=== PATIENT | male | born 1940 | race Caucasian/White ===

== ENCOUNTER 2017-04-05 18:18 | Inpatient (IN) | payer MEDICARE, BC ==
[~2017-04-05] VITALS: Ht 167.6 cm; Wt 70.0 kg
[2017-04-05 19:04] VITALS: BP 134/85; PULSE 98; TEMP 98.6
[2017-04-05] MEDS ORDERED: ZOLOFT 100MG100 MG PO (21:40)
[2017-04-05] MEDS ORDERED: ASPIRIN 81M81 MG/TA2 PO (21:41)
[2017-04-05] MEDS ORDERED: ARICEPT10 MG PO (21:41)
[2017-04-05] MEDS ORDERED: ZOCOR5 MG PO (21:41)
[2017-04-05] MEDS ORDERED: VITAMIN D31000 I1 PO (21:42)
[2017-04-05] MEDS ORDERED: PEPCID 20MG TAB20 MG PO (21:42)
[2017-04-05] MEDS ORDERED: B COMPLEX & B121 TAB (21:43)
[2017-04-05 23:33] VITALS: BP 133/80; PULSE 60; TEMP 98.5
[2017-04-06] VITALS (11 sets, daily range): BP systolic 108–143; BP diastolic 63–86; PULSE 50–62; TEMP 97.6–98.5
[2017-04-06 07:54] LABS: BASO % 0.3 % (0.0-2.0); EOS # 0.1 (0.0-0.7); EOS % 2.2 % (0-4.0); GRAN % 55.3 % (42.2-75.2); HEMATOCRIT 38.2 % (42.0-52.0); HEMOGLOBIN 13.2 g/dl (13.5-18.0); LYMPH % 28.4 % (20.0-51.0); MEAN CELL VOLUME 95 fl (80.0-100.0); MEAN CORPUSCULAR HEMOGLOBIN 33 pg (27.0-31.0); MEAN CORPUSCULAR HGB CONC 35 g/dl (33.0-37.0); MEAN PLATELET VOLUME 10.3 fl (7.4-10.4); MONO # 0.5 (0.1-0.6); MONO % 13.5 % (1.7-9.3); PLATELET COUNT 160 K/mm3 (130-400); RED BLOOD COUNT 4.01 M/mm3 (4.20-5.60); REDCELL DISTRIBUTION WIDTH-CV 11.9 % (11.5-14.5)
[2017-04-06 08:11] LABS: CREATININE, serum 0.71 mg/dL (0.66-1.25); PHOSPHOROUS 3.4 mg/dL (2.5-4.5); POTASSIUM 3.4 mmol/L (3.4-5.0)
[2017-04-06 18:40] LABS: PH 5 (5-8); SQUAMOUS EPITHELIAL None Seen /hpf; URINE APPEARANCE Clear; URINE BACTERIA None Seen /hpf; URINE BILIRUBIN Negative (NEGATIVE); URINE BLOOD 2+ (NEGATIVE); URINE COLOR Yellow; URINE GLUCOSE 1+ (NEGATIVE); URINE KETONE Trace (NEGATIVE); URINE LEUKOCYTE ESTERASE Negative (NEGATIVE); URINE NITRATE Negative (NEGATIVE); URINE PROTEIN(semi-quant) Negative (NEGATIVE); URINE UROBILINOGEN Negative (NEGATIVE)
[2017-04-06 18:43] LABS: COLLECTION METHOD CLEAN CATCH
[2017-04-07 00:59] VITALS: BP 107/69; PULSE 51; TEMP 97.6
[2017-04-07 03:48] VITALS: BP 123/88; PULSE 66; TEMP 98.5
[2017-04-07 07:23] VITALS: BP 129/71; PULSE 61; TEMP 98.3
[2017-04-07 12:17] VITALS: BP 142/84; PULSE 54; TEMP 98.1
== END 2017-04-07 15:25 | disposition home or self-care (01) | DRG 389 ==
LOC: MEDICAL 18:18
PROVIDERS: Surgery
PROC: 0D7N8ZZ Dilation of Sigmoid Colon, Via Natural or Artificial Opening Endoscopic (ICD-10-PCS; principal; 2017-04-06 07:30)
DX: K56.2 Volvulus (principal); E87.1 Hypo-osmolality and hyponatremia; G30.9 Alzheimer's disease, unspecified; F02.80 Dementia in other diseases classified elsewhere, unspecified severity, without behavioral disturbance, psychotic disturbance, mood disturbance, and anxiety
CPT/HCPCS: OP; J2704; J3010; J7030

== ENCOUNTER → 2017-04-05 | Outpatient (CLI) | payer MEDICARE, BC ==
[~2017-04-05] MED LIST: ARICEPT10 MG PO; ASPIRIN 81M81 MG/TA2 PO; B COMPLEX & B121 TAB; PEPCID 20MG TAB20 MG PO; VITAMIN D31000 I1 PO; ZOCOR5 MG PO; ZOLOFT 100MG100 MG PO
[2017-04-05 16:54] LABS: HEMATOCRIT 42.4 % (42.0-52.0); HEMOGLOBIN 14.4 g/dl (13.5-18.0); MEAN CELL VOLUME 96 fl (80.0-100.0); MEAN CORPUSCULAR HEMOGLOBIN 32 pg (27.0-31.0); MEAN CORPUSCULAR HGB CONC 34 g/dl (33.0-37.0); MEAN PLATELET VOLUME 9.5 fl (7.4-10.4); PLATELET COUNT 171 K/mm3 (130-400); RED BLOOD COUNT 4.44 M/mm3 (4.20-5.60)
[2017-04-05 17:07] LABS: ALBUMIN 3.9 gm/dL (3.5-5.0); BILIRUBIN,TOTAL 0.9 mg/dL (0.0-1.0); CALCIUM 8.4 mg/dL (8.4-10.2); CREATININE, serum 0.8 mg/dL (0.66-1.25); POTASSIUM 3.8 mmol/L (3.4-5.0); TOTAL PROTEIN 6.4 gm/dL (6.4-8.2)
== END ==
LOC: COL.RAD 15:49
PROVIDERS: Family Medicine
DX: K56.600 Partial intestinal obstruction, unspecified as to cause (principal); M51.36 Other intervertebral disc degeneration, lumbar region; M46.96 Unspecified inflammatory spondylopathy, lumbar region; M41.86 Other forms of scoliosis, lumbar region; N40.0 Benign prostatic hyperplasia without lower urinary tract symptoms; Z98.0 Intestinal bypass and anastomosis status
CPT/HCPCS: Q9967

== ENCOUNTER 2017-04-11 13:12 | Inpatient (IN) | payer MEDICARE, BC ==
[~2017-04-11] VITALS: Ht 167.6 cm; Wt 70.2 kg
[~2017-04-11 13:12] MED LIST changes: -B COMPLEX & B121 TAB; +B-121000 MCG SL; -PEPCID 20MG TAB20 MG PO; +PEPCID AC 10MG10 MG PO; +ZOCOR 40MG40 MG PO; -ZOCOR5 MG PO
[2017-04-21] VITALS (11 sets, daily range): BP systolic 83–143; BP diastolic 52–87; PULSE 65–95; TEMP 97.3–98
[2017-04-21 10:46] LABS: BASO % 0.9 % (0.0-2.0); EOS # 0.1 (0.0-0.7); EOS % 1.6 % (0-4.0); GRAN # 2.5 (1.4-6.5); GRAN % 55.9 % (42.2-75.2); HEMATOCRIT 42.8 % (42.0-52.0); HEMOGLOBIN 14.7 g/dl (13.5-18.0); LYMPH # 1.4 (1.2-3.4); MEAN CELL VOLUME 96 fl (80.0-100.0); MEAN CORPUSCULAR HEMOGLOBIN 33 pg (27.0-31.0); MEAN CORPUSCULAR HGB CONC 34 g/dl (33.0-37.0); MEAN PLATELET VOLUME 9.5 fl (7.4-10.4); MONO # 0.5 (0.1-0.6); MONO % 10.6 % (1.7-9.3); PLATELET COUNT 199 K/mm3 (130-400); RED BLOOD COUNT 4.48 M/mm3 (4.20-5.60); REDCELL DISTRIBUTION WIDTH-CV 12.1 % (11.5-14.5)
[2017-04-21 10:57] LABS: CALCIUM 8.7 mg/dL (8.4-10.2); CREATININE, serum 0.76 mg/dL (0.66-1.25); POTASSIUM 3.9 mmol/L (3.4-5.0)
[2017-04-22] VITALS (9 sets, daily range): BP systolic 71–105; BP diastolic 40–62; PULSE 63–93; TEMP 97.5–98.2
[2017-04-22 05:29] LABS: CALCIUM 7.8 mg/dL (8.4-10.2); CREATININE, serum 1.14 mg/dL (0.66-1.25); HEMATOCRIT 31.1 % (42.0-52.0); HEMOGLOBIN 10.5 g/dl (13.5-18.0); POTASSIUM 4.4 mmol/L (3.4-5.0)
[2017-04-22 12:38] LABS: HEMATOCRIT 29.1 % (42.0-52.0); HEMOGLOBIN 9.7 g/dl (13.5-18.0)
[2017-04-23 04:42] VITALS: BP 128/75; PULSE 80; TEMP 98.2
[2017-04-23 07:08] LABS: HEMATOCRIT 23.2 % (42.0-52.0)
[2017-04-23 07:13] LABS: CALCIUM 7.6 mg/dL (8.4-10.2); CREATININE, serum 0.74 mg/dL (0.66-1.25); POTASSIUM 3.9 mmol/L (3.4-5.0)
[2017-04-23 09:01] VITALS: BP 110/68; PULSE 84; TEMP 97.6
[2017-04-23 14:46] VITALS: BP 118/83; PULSE 88; TEMP 98.2
[2017-04-23 16:36] LABS: HEMATOCRIT 27.4 % (42.0-52.0); HEMOGLOBIN 9.3 g/dl (13.5-18.0)
[2017-04-23 17:17] VITALS: BP 114/78; PULSE 101; TEMP 98.9
[2017-04-23 20:00] VITALS: BP 116/72; PULSE 98; TEMP 98
[2017-04-24 04:10] VITALS: BP 108/62; PULSE 92; TEMP 98.6
[2017-04-24 07:09] LABS: HEMATOCRIT 27.8 % (42.0-52.0); HEMOGLOBIN 9.6 g/dl (13.5-18.0)
[2017-04-24 09:46] VITALS: BP 124/71; PULSE 93; TEMP 99.1
[2017-04-24 13:26] VITALS: BP 110/74; PULSE 78; TEMP 97.9
[2017-04-24 17:59] VITALS: BP 122/66; PULSE 89; TEMP 99.2
[2017-04-24 22:29] VITALS: BP 117/73; PULSE 79; TEMP 98.1
[2017-04-25 01:50] VITALS: BP 141/68; PULSE 77; TEMP 98.1
[2017-04-25 05:51] VITALS: BP 122/76; PULSE 72; TEMP 98.1
[2017-04-25 06:18] LABS: HEMATOCRIT 24.2 % (42.0-52.0); HEMOGLOBIN 8.2 g/dl (13.5-18.0)
[2017-04-25 06:30] LABS: CALCIUM 7.5 mg/dL (8.4-10.2); CREATININE, serum 0.76 mg/dL (0.66-1.25); MAGNESIUM 1.9 mg/dL (1.6-2.3); PHOSPHOROUS 3.3 mg/dL (2.5-4.5); POTASSIUM 3.5 mmol/L (3.4-5.0)
[2017-04-25 09:39] VITALS: BP 123/79; PULSE 75; TEMP 97.4
[2017-04-25 13:24] VITALS: BP 103/66; PULSE 82; TEMP 98
[2017-04-25 17:17] VITALS: BP 113/78; PULSE 68; TEMP 97.8
[2017-04-25 21:20] VITALS: BP 117/68; PULSE 76; TEMP 98.1
[2017-04-26 01:30] VITALS: BP 125/77; PULSE 83; TEMP 98.5
[2017-04-26 05:33] VITALS: BP 129/77; PULSE 87; TEMP 98.4
[2017-04-26 09:36] VITALS: BP 120/78; PULSE 79; TEMP 98.3
== END 2017-04-26 13:20 | disposition home or self-care (01) | DRG 330 ==
LOC: SURG 04-21 09:32 → INPTSU 04-21 09:32 → SURG 04-21 11:30
PROVIDERS: Surgery
PROC: 0DBL4ZZ Excision of Transverse Colon, Percutaneous Endoscopic Approach (ICD-10-PCS; 2017-04-21)
PROC: 8E0W3CZ Robotic Assisted Procedure of Trunk Region, Percutaneous Approach (ICD-10-PCS; 2017-04-21)
PROC: 0DBM4ZZ Excision of Descending Colon, Percutaneous Endoscopic Approach (ICD-10-PCS; principal; 2017-04-21 11:30)
DX: K56.2 Volvulus (principal); D62 Acute posthemorrhagic anemia; K91.840 Postprocedural hemorrhage of a digestive system organ or structure following a digestive system procedure; K56.7 Ileus, unspecified; Z85.038 Personal history of other malignant neoplasm of large intestine; G30.9 Alzheimer's disease, unspecified; F02.80 Dementia in other diseases classified elsewhere, unspecified severity, without behavioral disturbance, psychotic disturbance, mood disturbance, and anxiety
CPT/HCPCS: A4314; J1100; J1650; J1885; J2270; J2405; J2704; J2710; J2765; J3010; J7120

== ENCOUNTER 2017-05-16 09:38 | Observation (INO) | payer MEDICARE, BC ==
[~2017-05-16] VITALS: Ht 167.6 cm; Wt 63.6 kg
[2017-05-16 10:49] LABS: BASO % 0.3 % (0.0-2.0); EOS % 0.7 % (0-4.0); GRAN # 4.7 (1.4-6.5); GRAN % 77.1 % (42.2-75.2); HEMATOCRIT 38.3 % (42.0-52.0); HEMOGLOBIN 12.6 g/dl (13.5-18.0); LYMPH # 0.8 (1.2-3.4); LYMPH % 12.4 % (20.0-51.0); MEAN CELL VOLUME 99 fl (80.0-100.0); MEAN CORPUSCULAR HEMOGLOBIN 33 pg (27.0-31.0); MEAN CORPUSCULAR HGB CONC 33 g/dl (33.0-37.0); MEAN PLATELET VOLUME 9.1 fl (7.4-10.4); MONO # 0.6 (0.1-0.6); MONO % 9.2 % (1.7-9.3); PLATELET COUNT 312 K/mm3 (130-400); RED BLOOD COUNT 3.87 M/mm3 (4.20-5.60); REDCELL DISTRIBUTION WIDTH-CV 14.1 % (11.5-14.5)
[2017-05-16 11:03] LABS: ALBUMIN 3.5 gm/dL (3.5-5.0); CALCIUM 8.7 mg/dL (8.4-10.2); CREATININE, serum 0.97 mg/dL (0.66-1.25); POTASSIUM 3.7 mmol/L (3.4-5.0); TOTAL PROTEIN 6.4 gm/dL (6.4-8.2)
[2017-05-16 13:41] LABS: COLLECTION METHOD CLEAN CATCH
[2017-05-16 13:52] LABS: MUCOUS Present /lpf; PH 6 (5-8); SQUAMOUS EPITHELIAL None Seen /hpf; URINE APPEARANCE Clear; URINE BACTERIA None Seen /hpf; URINE BILIRUBIN Negative (NEGATIVE); URINE BLOOD Negative (NEGATIVE); URINE COLOR Yellow; URINE GLUCOSE Negative (NEGATIVE); URINE KETONE Negative (NEGATIVE); URINE LEUKOCYTE ESTERASE Negative (NEGATIVE); URINE NITRATE Negative (NEGATIVE); URINE PROTEIN(semi-quant) Negative (NEGATIVE); URINE UROBILINOGEN Negative (NEGATIVE)
[2017-05-16 16:01] VITALS: BP 126/70; PULSE 65; TEMP 97.9
[2017-05-16 17:08] VITALS: BP 106/74; PULSE 73; TEMP 98.1
[2017-05-16 21:53] VITALS: BP 121/85; PULSE 72; TEMP 99.4
[2017-05-17 01:04] VITALS: BP 120/72; PULSE 72; TEMP 98.4
[2017-05-17 04:58] VITALS: BP 114/73; PULSE 68; TEMP 98.1
[2017-05-17 08:50] VITALS: BP 120/76; PULSE 73; TEMP 98.4
[2017-05-17 13:25] VITALS: BP 109/67; PULSE 82; TEMP 98.5
== END 2017-05-17 14:48 | disposition home or self-care (01) ==
LOC: COL.ER 09:38 → SURG 14:41
PROVIDERS: Emergency Medicine
DX: K56.600 Partial intestinal obstruction, unspecified as to cause (principal); F03.90 Unspecified dementia, unspecified severity, without behavioral disturbance, psychotic disturbance, mood disturbance, and anxiety; R63.4 Abnormal weight loss; E44.0 Moderate protein-calorie malnutrition; Z88.0 Allergy status to penicillin; Z88.1 Allergy status to other antibiotic agents
CPT/HCPCS: G0378; J2270; J2405; J3010; J7030; Q9967

== ENCOUNTER → 2017-05-30 | Outpatient (CLI) | payer BC | LOC: COL.RAD 07:41 | DX: K91.30 Postprocedural intestinal obstruction, unspecified as to partial versus complete (principal); Z90.49 Acquired absence of other specified parts of digestive tract ==

== ENCOUNTER → 2018-06-21 | Outpatient (CLI) | payer BC | LOC: COL.RAD 10:13 | DX: G31.9 Degenerative disease of nervous system, unspecified (principal) | CPT/HCPCS: A9585 ==